=== PATIENT | male | born 1965 | race African-American/Black ===

== ENCOUNTER 2016-09-30 11:36 | Inpatient (IN) | payer MEDICAID ==
[~2016-09-30] VITALS: Ht 198.1 cm; Wt 70.8 kg
[~2016-09-30 11:36] MED LIST: ACET-2605 GT; ACET-868 GT; ALBU2.5V13 NEB; AMAN50SY GT; AMLO10TA2 GT; ASCO500S2 GT; BISA10SU61 RC; CHLO473M2 MM; CRAN3875 GT; ENOX30DI5 SQ; ERYT3.5O9 EACHEYE; FERR220S2 GT; HYDR-3326 GT; IPRA0.2S9 IH; LISI-607 GT; MAGN400O6 GT; METO50TA3 GT; MINE3.5O EACHEYE; MULT9LIQ GT; NA P133E RC; ONDA4TAB8 GT; POLY17PO4 GT; TERA2CAP4 GT; VANC1VIA IV; ZINC220T GT
--- NOTE | 2016-09-30 11:58 | NUR ---
domitila murphy from [facility] for g-tube replacement, patient seen by dr. orantes at bedside, placed on monitor, will continue to monitor closely, no caterina bleeding done.
--- NOTE | 2016-09-30 12:08 | NUR ---
CALLED (GI FAMILY NURSE), TRANSFERRED CALL TO
[2016-09-30] MEDS ORDERED: AMIN30LI4 GT (12:24)
[2016-09-30] MEDS ORDERED: CHLO15MO2 MM (12:24)
[2016-09-30] MEDS ORDERED: METO25TA20 GT (12:24)
[2016-09-30] MEDS ORDERED: LACT-96 GT (12:24)
[2016-09-30] MEDS ORDERED: ACID1TAB12 GT (12:24)
[2016-09-30] MEDS ORDERED: MULT-24 GT (12:24)
--- NOTE | 2016-09-30 13:24 | NUR ---
GAVE REPORT TO CHAPITO BARRERA/ KIET BARRERA ORIENTEE. DX GTUBE REPLACEMENT . ADMITTING MD DR SWARTZ. MEDSURG.
[2016-09-30] MEDS ORDERED: MAGNESIUM HYDROXIDE 30 ML UDC PO PRN ×2 (14:00→14:15)
[2016-09-30] MEDS ORDERED: ACETAMINOPHEN 325 MG TABLET PO PRN ×2 (14:00→14:15)
[2016-09-30] MEDS ORDERED: MAG HYDROX/AL HYDROX/SIMETH 30 ML UDC PO PRN ×2 (14:00→14:15)
[2016-09-30] MEDS ORDERED: Z GUARD REMEDY 2 OZ OINT TP PRN ×2 (14:00→14:15)
[2016-09-30] MEDS ORDERED: ALBUTEROL FS 2.5 MG/0.5 ML VIAL.NEB NEB PRN (14:00)
[2016-09-30] MEDS ORDERED: HYDROCODONE/APAP 5/325MG 1 EACH TABLET PO PRN ×2 (14:00→14:15)
[2016-09-30] MEDS ORDERED: ONDANSETRON HCL/PF 4 MG/2 ML VIAL IVP PRN ×2 (14:00→14:15)
[2016-09-30] MEDS ORDERED: ZOLPIDEM TARTRATE 5 MG TABLET PO PRN ×2 (14:00→14:15)
[2016-09-30] MEDS ORDERED: IPRATROPIUM NEB FS 0.5 MG/2.5 ML AMPUL.NEB IH PRN (14:00)
[2016-09-30 15:15] VITALS: BP 100/59
--- NOTE | 2016-09-30 15:57 | NUR ---
INITIAL HERITAGE CONSULTANT NOTE PT REPORT TO THE [place] ALERT AND ORIENTED TRACH DEPENDENT WITH A INTAKE DIAGNOSIS OF G- TUBE REPLACEMENT. PT HAS CURRENT G-TUBE NOT FULLY FUNCTIONAL, PT HAS HX OF RESP FAILURE, UTI, SKULL FX , ICP, INTRACRANIAL HEMORRHAGE. PT IS 51 YEAR OLD MALE COMPLETELY DEPENDENT SETTING FOR TRACH INCLUDED 28% COOL ARESOL AND 5 LITERS OF O2, PT HAS MULTIPLE WOUNDS PRESENT - BILATERAL HEELS AND FEET , SACRAL LEFT LEFT ULCER, MID BACK/SPINE RIGHT SHOULDER ULCER ALL WOUNDS ADDRESSED WOUND CONSULT SUBMITTED , BED PLACED IN LOWEST POSITION AND LOCKED PATIENT NO ISSUES PRESENT , NURSING STAFF CALLING FOR CONSENT AT THIS TIME FOR G-TUBE PLACEMENT. NURSING STAFF WILL CONTINUE TO FOLLOW
[2016-09-30 16:00] VITALS: BP 100/59
--- NOTE | 2016-09-30 16:40 | NUR ---
ROAD MACHINE RUNNER NOTE NURSING STAFF HAS ATTEMPTED MULTIPLE CONTACTS FOR THE PATIENTS FAMILY MEMBERS ON FILE NURSING STAFF UNABLE TO SPEAK WITH FAMILY MEMBERS VOICEMAIL LEFT FOR THE PATIENT FAMILY TO RETURN THE PHONE CALL NURSING STAFF WILL CONTINUE TO WAIT FOR RETURN CALL
--- NOTE | 2016-09-30 16:43 | NUR ---
MACHINE OPERATOR SLITTER TECHNICIAN NOTE SPOKE WITH DR. SWARTZ STATES HE WILL SIGN CONSENT ORDER FOR REPLACEMENT OF g-tube if nursing staff unable to reach patients family for consent to treat. spoke with Dr. Parada master scheduler- ordered consult and he will also sign when he is able to come in to evaluate the patient . n Nursing staff will continue to follow.
[2016-09-30 16:55] LABS: BASOPHILS % (AUTO) 0.3 % (0.0-2.0); EOSINOPHILS # (AUTO) 0.5 /CMM (0.0-0.7); EOSINOPHILS % (AUTO) 3.6 % (0.0-6.0); HEMATOCRIT 29 % (39-51); HEMOGLOBIN 9.1 g/dL (13.5-17.5); LYMPHOCYTES # (AUTO) 1.3 /CMM (0.8-4.8); MEAN CORPUSCULAR HEMOGLOBIN 25 PG (26.0-33.0); MEAN CORPUSCULAR HGB CONC 32 g/dl (31.0-36.0); MEAN CORPUSCULAR VOLUME 79 fL (80-96); MONOCYTES # (AUTO) 1.3 /CMM (0.1-1.30); MONOCYTES % (AUTO) 9.9 % (2.0-12.0); NEUTROPHILS # (AUTO) 10.3 /CMM (1.8-8.9); NEUTROPHILS % (AUTO) 76.2 % (43.0-81.0); PLATELET COUNT (AUTO) 265 /CMM (150-450); RDW COEFFICIENT OF VARIATION 17.8 (11.5-15.0); RED BLOOD CELL COUNT(AUTO) 3.63 MIL/uL (4.5-6.0); WHITE BLOOD COUNT (AUTO) 13.5 K/uL (4.3-11.0)
[2016-09-30] MEDS: ERYTHROMYCIN BASE OPHTH 3.5 GM TUBE EACHEYE SCH ×2 (17:00→20:39)
[2016-09-30] MEDS: FERROUS SULFATE (325 MG) 325 MG/TAB TABLET GT SCH (17:00)
[2016-09-30] MEDS: LACTOBACILLUS RHAMNOSUS GG 1 EACH CAP.SPRINK GT SCH (17:00)
[2016-09-30] MEDS: PROSOURCE / PROSTAT (PYXIS) 30 ML UDC GT SCH ×2 (17:00→20:14)
[2016-09-30] MEDS: HYDROCODONE/APAP 5/325MG 1 EACH TABLET GT SCH (17:00)
[2016-09-30 17:01] LABS: CALCIUM, SERUM 9.9 mg/dL (8.5-10.1); CREATININE 0.9 mg/dL (0.6-1.3); POTASSIUM 4.5 mmol/L (3.5-5.1)
[2016-09-30 17:15] LABS: EOSINOPHILS % (MANUAL) 4 % (0-4); LYMPHOCYTES % (MANUAL) 14 % (16-48); MONOCYTES % (MANUAL) 9 % (0-11.0); NEUTROPHILS % (MANUAL) 73 (42-76)
--- NOTE | 2016-09-30 17:21 | NUR ---
FUEL CELL REPAIRER OTE UNABLE TO ADMINISTER MEDS VIA G TUBE G TUBE NOT WORKING ,KEEP NPO AT THIS TIME, DR FALLON AWARE
[2016-09-30] MEDS: LANOLIN/MIN OIL/PETROLAT,WHT 3.5 GM TUBE EACHEYE SCH ×2 (17:45→20:39)
[2016-09-30 18:01] LABS: INR 1.1 (0.87-1.13); PROTHROMBIN TIME 11.8 SECS (9.5-12.7)
--- NOTE | 2016-09-30 18:15 | NUR ---
CLOSING INFORMATION TECHNOLOGY DIRECTOR NOTE PT ALERT AND ORIENTED TRACH DEPENDENT WITH A INTAKE DIAGNOSIS OF G- TUBE REPLACEMENT. PT HAS CURRENT G-TUBE NOT FULLY FUNCTIONAL, PT HAS HX OF RESP FAILURE, UTI, SKULL FX , ICP, INTRACRANIAL HEMORRHAGE. PT IS 51 YEAR OLD MALE COMPLETELY DEPENDENT SETTING FOR TRACH INCLUDED 28% COOL ARESOL AND 5 LITERS OF O2, PT HAS MULTIPLE WOUNDS PRESENT - BILATERAL HEELS AND FEET , SACRAL LEFT LEFT ULCER, MID BACK/SPINE RIGHT SHOULDER/ BACK OF THE HEAD PRESSURE ULCER ALL WOUNDS ADDRESSED WOUND CONSULT SUBMITTED , BED PLACED IN LOWEST POSITION AND LOCKED PATIENT NO ISSUES PRESENT , NURSING STAFF CALLING FOR CONSENT AT THIS TIME FOR G-TUBE PLACEMENT. NURSING STAFF WILL CONTINUE TO FOLLOW. AM RN WILL ENDORSE TO THE ENGINEERING EQUIPMENT OPERATOR.
--- NOTE | 2016-09-30 18:43 | NUR ---
BUFFING WHEEL FORMER AUTOMATIC NOTE NURSING STAFF CONTACTED THE PHARMACY IN [place] TO ERYTHROMYCIN EYE DROPS NEEDED FOR BOTH EYES , PHARMACY STATES THAT THEY WILL DELIVER DAY SHIFT STILL WAITING FOR MEDICATION WILL ENDORSE TO SOFTWARE FIRMWARE ENGINEER
--- NOTE | 2016-09-30 19:45 | NUR ---
ZINC ETCHER - INITIAL NOTES PATIENT IN BED, CURRENTLY AWAKE BUT NON-VERBAL. NO S/S OF SOB OR ANY DISCOMFORT NOTED. TELE READING OF SR IN THE 80'S. BREATHING EVEN AND UNLABORED. ON T-PIECE WITH COOL AEROSOL 5L @ 28%. NO SIGNIFICANT CHANGES NOTED AT THIS TIME. WILL CONTINUE TO MONITOR PATIENT.
[2016-09-30 20:00] VITALS: BP 115/64
[2016-09-30] MEDS: IPRATROPIUM NEB FS 0.5 MG/2.5 ML AMPUL.NEB IH SCH (20:08)
[2016-09-30] MEDS: ALBUTEROL FS 2.5 MG/0.5 ML VIAL.NEB NEB SCH (20:08)
[2016-09-30] MEDS: AMANTADINE SUSP 50 MG/5 ML UDC GT SCH (20:14)
[2016-09-30] MEDS: ENOXAPARIN SODIUM 30 MG/0.3 ML DISP.SYRIN SQ SCH (20:38)
[2016-09-30] MEDS: CHLORHEXIDINE GLUCONATE 15 ML UDC MM SCH (20:38)
[2016-09-30] MEDS: TERAZOSIN HCL 1 MG CAPSULE GT SCH (20:40)
[2016-10-01] VITALS: BP 103/63
[2016-10-01] MEDS: LANOLIN/MIN OIL/PETROLAT,WHT 3.5 GM TUBE EACHEYE SCH ×6 (00:39→21:25)
[2016-10-01] MEDS: ALBUTEROL FS 2.5 MG/0.5 ML VIAL.NEB NEB SCH ×4 (01:32→20:02)
[2016-10-01] MEDS: IPRATROPIUM NEB FS 0.5 MG/2.5 ML AMPUL.NEB IH SCH ×4 (01:33→20:02)
[2016-10-01 04:00] VITALS: BP 110/62
[2016-10-01] MEDS ORDERED: ACETAMINOPHEN 650 MG/SUPP.RECT RC ONE (04:23)
--- NOTE | 2016-10-01 04:28 | NUR ---
PATIENT NOTED TO HAVE A TEMP 101.1 F, PATIENT CURRENTLY NPO AND TUBE FEEDING NOT ABLE TO USE. INFORMED GLORIA GALLEGOS REGARDING PATIENT'S STATUS AND ORDERED BLOOD CULTURE X2, TYLENOL 650MG SUPP Q6H PRN FOR INCREASE TEMPERATURE AND URINE CULTURE. NOTED AND CARRIED OUT. Addendum: 10/01/16 at 0636 by AYLIN HORNER RN TEMP 101.4F
[2016-10-01] MEDS ORDERED: ACETAMINOPHEN 650 MG/SUPP.RECT RC PRN (04:30)
[2016-10-01 06:35] LABS: BASOPHILS % (AUTO) 0.3 % (0.0-2.0); EOSINOPHILS # (AUTO) 0.4 /CMM (0.0-0.7); HEMATOCRIT 27 % (39-51); HEMOGLOBIN 8.8 g/dL (13.5-17.5); LYMPHOCYTES # (AUTO) 1.3 /CMM (0.8-4.8); LYMPHOCYTES % (AUTO) 10.4 % (20.0-44.0); MEAN CORPUSCULAR HEMOGLOBIN 25 PG (26.0-33.0); MEAN CORPUSCULAR HGB CONC 32 g/dl (31.0-36.0); MEAN CORPUSCULAR VOLUME 78 fL (80-96); MONOCYTES # (AUTO) 1.1 /CMM (0.1-1.30); MONOCYTES % (AUTO) 8.9 % (2.0-12.0); NEUTROPHILS # (AUTO) 9.7 /CMM (1.8-8.9); NEUTROPHILS % (AUTO) 77.4 % (43.0-81.0); PLATELET COUNT (AUTO) 328 /CMM (150-450); RDW COEFFICIENT OF VARIATION 17.9 (11.5-15.0); RED BLOOD CELL COUNT(AUTO) 3.47 MIL/uL (4.5-6.0); WHITE BLOOD COUNT (AUTO) 12.6 K/uL (4.3-11.0)
--- NOTE | 2016-10-01 06:36 | NUR ---
RE-CHECKED PATIENT'S TEMP AND CURRENTLY AT 100.2F. NO DISTRESS NOTED. WILL CONTINUE TO MONITOR PATIENT.
--- NOTE | 2016-10-01 06:48 | NUR ---
END OF SHIFT REPORT PATIENT REMAINS STABLE. TEMP SPIKED TO 101.4 AT AROUND 0400. GOT AN ORDER FROM GLORIA GALLEGOS (HOSPITALIST) FOR BLOOD CULTURE X2, URINE CULTURE, AND TYLENOL SUPP 650MG PRN Q6H. TEMP DROPPED TO 100.3F. NO S/S OF SOB NOTED. TOLERATING COOL AEROSOL @ 5L FIO2 28%. BED IN LOW POSITION AND LOCKED. SIDERAILS X 2UP. WILL ENDORSE TO MORNING NURSE FOR CONTINUITY OF CARE.
[2016-10-01 06:49] LABS: CREATININE 0.9 mg/dL (0.6-1.3); POTASSIUM 3.9 mmol/L (3.5-5.1)
[2016-10-01 07:00] LABS: INR 1.11 (0.87-1.13); PROTHROMBIN TIME 11.9 SECS (9.5-12.7)
--- NOTE | 2016-10-01 07:30 | NUR ---
Received pt in bed.no c/o pain,no sob,no s/s of distress.on cool aerosol .pt on tele monitoring with S.R of 80.perez catheter cdi and patent.pt is on NPO status and waiting for G.TUBE replacement.safety measures in place .will continue to monitor for changes.
[2016-10-01] MEDS: CHLORHEXIDINE GLUCONATE 15 ML UDC MM SCH ×2 (09:00→21:23)
[2016-10-01] MEDS: ASCORBIC ACID SYRUP 500 MG/5 ML UDC GT SCH (09:00)
[2016-10-01] MEDS ORDERED: HYDROGEL DRESSING 90 GM TUBE TP PRN (09:00)
[2016-10-01] MEDS: LISINOPRIL (5MG) 5 MG TABLET GT SCH (09:00)
[2016-10-01] MEDS: FERROUS SULFATE (325 MG) 325 MG/TAB TABLET GT SCH ×3 (09:00→17:00)
[2016-10-01] MEDS: POLYETHYLENE GLYCOL 3350 17 GM POWD.PACK GT SCH (09:00)
[2016-10-01] MEDS ORDERED: Medication Not On Formulary EA (Cran/Vitc/Mannose/Inulin/Brom (Uti-Stat Liquid) 30 ML) GT SCH (09:00)
[2016-10-01] MEDS: ENOXAPARIN SODIUM 30 MG/0.3 ML DISP.SYRIN SQ SCH ×2 (09:00→21:30)
[2016-10-01] MEDS: HYDROCODONE/APAP 5/325MG 1 EACH TABLET GT SCH ×2 (09:00→17:00)
[2016-10-01] MEDS: PROSOURCE / PROSTAT (PYXIS) 30 ML UDC GT SCH ×4 (09:00→22:06)
[2016-10-01] MEDS: MULTIVITAMINS,THERAPEUTIC 1 UDTAB TABLET GT SCH (09:00)
[2016-10-01] MEDS: METOPROLOL TARTRATE 25 MG TABLET GT SCH (09:00)
[2016-10-01] MEDS: AMLODIPINE BESYLATE 10 MG TABLET GT SCH (09:00)
[2016-10-01] MEDS: HYDROGEL DRESSING 90 GM TUBE TP SCH (09:00)
[2016-10-01] MEDS: LACTOBACILLUS RHAMNOSUS GG 1 EACH CAP.SPRINK GT SCH ×2 (09:00→17:00)
[2016-10-01] MEDS: DAKINS QUARTER STRENGTH (0.125%) 480 ML BOTTLE TOP SCH (09:00)
[2016-10-01] MEDS: AMANTADINE SUSP 50 MG/5 ML UDC GT SCH ×2 (09:00→21:00)
[2016-10-01] MEDS: ERYTHROMYCIN BASE OPHTH 3.5 GM TUBE EACHEYE SCH ×4 (09:00→21:24)
[2016-10-01 12:00] VITALS: BP 110/59
[2016-10-01 15:48] LABS: CALCIUM, SERUM 9.8 mg/dL (8.5-10.1); CREATININE 0.9 mg/dL (0.6-1.3); POTASSIUM 3.9 mmol/L (3.5-5.1)
[2016-10-01 16:00] VITALS: BP 109/64
--- NOTE | 2016-10-01 19:30 | NUR ---
CORE MAKER HELPER NOTE RECEIVED PATIENT FROM DAY SHIFT, PATIENT IS ALERT AND NON-VERBAL, WITH TRACH DEPENDENT 5L OF AEROSOL. G TUBE PRESENT MALFUNCTIONING, UNABLE TO USE AT THIS TIME, STILL PENDING FOR G TUBE PLACEMENT PER REPORT. IV ON RIGHT HAND IS PATENT AND INTACT, HL ONLY. TELE MONITOR SR 98. SRX2, BED IN LOW POSITION, CALL LIGHT WITHIN REACH, WILL CONTINUE TO MONITOR PATIENT.
[2016-10-01 20:00] VITALS: BP 109/65
[2016-10-01] MEDS: TERAZOSIN HCL 1 MG CAPSULE GT SCH (22:00)
[2016-10-02] VITALS: BP 108/65
[2016-10-02] MEDS: LANOLIN/MIN OIL/PETROLAT,WHT 3.5 GM TUBE EACHEYE SCH ×6 (00:59→21:42)
[2016-10-02] MEDS: ALBUTEROL FS 2.5 MG/0.5 ML VIAL.NEB NEB SCH ×4 (01:27→20:08)
[2016-10-02] MEDS: IPRATROPIUM NEB FS 0.5 MG/2.5 ML AMPUL.NEB IH SCH ×4 (01:27→20:08)
[2016-10-02 04:00] VITALS: BP 107/62
[2016-10-02 06:31] LABS: BASOPHILS % (AUTO) 0.3 % (0.0-2.0); EOSINOPHILS # (AUTO) 0.4 /CMM (0.0-0.7); EOSINOPHILS % (AUTO) 2.8 % (0.0-6.0); HEMATOCRIT 31 % (39-51); HEMOGLOBIN 9.9 g/dL (13.5-17.5); LYMPHOCYTES # (AUTO) 1.3 /CMM (0.8-4.8); MEAN CORPUSCULAR HEMOGLOBIN 25 PG (26.0-33.0); MEAN CORPUSCULAR HGB CONC 32 g/dl (31.0-36.0); MEAN CORPUSCULAR VOLUME 78 fL (80-96); MONOCYTES # (AUTO) 1.2 /CMM (0.1-1.30); MONOCYTES % (AUTO) 9.1 % (2.0-12.0); NEUTROPHILS # (AUTO) 10.3 /CMM (1.8-8.9); NEUTROPHILS % (AUTO) 77.8 % (43.0-81.0); PLATELET COUNT (AUTO) 313 /CMM (150-450); RED BLOOD CELL COUNT(AUTO) 3.93 MIL/uL (4.5-6.0); WHITE BLOOD COUNT (AUTO) 13.3 K/uL (4.3-11.0)
--- NOTE | 2016-10-02 06:34 | NUR ---
SALESPERSON FLOWERS NOTE PATIENT IS RESTING IN BED COMFORTABLY, NO ACUTE DISTRESS NOTED DURING THE SOFTWARE INTERN. ALL DUE MEDS GIVEN, MORNING CARE RENDERED, DRESSING CHANGES PERFORMED PER ORDER. MARTINEZ EMPTIED 950ML. NO S/S OF RESPIRATORY DISTRESS AND NO FACIAL GRIMACE NOTED. TELE SR 100. WILL ENDORSE TO DAY SHIFT FOR ROMI.
[2016-10-02 06:58] LABS: CALCIUM, SERUM 10.1 mg/dL (8.5-10.1); CREATININE 0.8 mg/dL (0.6-1.3); POTASSIUM 4.1 mmol/L (3.5-5.1)
--- NOTE | 2016-10-02 07:28 | NUR ---
SENIOR CONSUMER INSIGHTS CONSULTANT NOTE REPORT GIVEN TO GAETANOG RN FOR ROMI.
[2016-10-02 08:00] VITALS: BP 117/79
[2016-10-02] MEDS: HYDROCODONE/APAP 5/325MG 1 EACH TABLET GT SCH ×2 (09:00→17:00)
[2016-10-02] MEDS: FERROUS SULFATE (325 MG) 325 MG/TAB TABLET GT SCH ×3 (09:00→17:00)
[2016-10-02] MEDS: ERYTHROMYCIN BASE OPHTH 3.5 GM TUBE EACHEYE SCH ×4 (09:00→21:43)
[2016-10-02] MEDS: AMANTADINE SUSP 50 MG/5 ML UDC GT SCH ×2 (09:00→21:00)
[2016-10-02] MEDS: LACTOBACILLUS RHAMNOSUS GG 1 EACH CAP.SPRINK GT SCH ×2 (09:00→17:00)
[2016-10-02] MEDS: MULTIVITAMINS,THERAPEUTIC 1 UDTAB TABLET GT SCH (09:00)
[2016-10-02] MEDS: HYDROGEL DRESSING 90 GM TUBE TP SCH (09:00)
[2016-10-02] MEDS: POLYETHYLENE GLYCOL 3350 17 GM POWD.PACK GT SCH (09:00)
[2016-10-02] MEDS: ASCORBIC ACID SYRUP 500 MG/5 ML UDC GT SCH (09:00)
[2016-10-02] MEDS: METOPROLOL TARTRATE 25 MG TABLET GT SCH (09:00)
[2016-10-02] MEDS: DAKINS QUARTER STRENGTH (0.125%) 480 ML BOTTLE TOP SCH (09:00)
[2016-10-02] MEDS: ENOXAPARIN SODIUM 30 MG/0.3 ML DISP.SYRIN SQ SCH ×2 (09:00→21:33)
[2016-10-02] MEDS: PROSOURCE / PROSTAT (PYXIS) 30 ML UDC GT SCH ×4 (09:00→21:00)
[2016-10-02] MEDS: CHLORHEXIDINE GLUCONATE 15 ML UDC MM SCH ×2 (09:00→21:32)
[2016-10-02] MEDS: LISINOPRIL (5MG) 5 MG TABLET GT SCH (09:00)
[2016-10-02] MEDS: AMLODIPINE BESYLATE 10 MG TABLET GT SCH (09:00)
--- NOTE | 2016-10-02 11:24 | NUR ---
REPORTED ABNORMAL LABS TO FOR SODIUM OF 150 .HE STATED TO FOLLOW UP WITH NEPHROLOGY TEAM.DR. ESCAMILLA FROM [facility] NEPHROLOGY NOTIFIED.NO NEW ORDERS RECEIVED.
[2016-10-02] MEDS ORDERED: IV 1/2NS 1000 ML 1,000 ML IV ONE (11:48)
[2016-10-02] MEDS ORDERED: IV SET PRIMARY PUMP SET 1 EA INFUS.SET MC ONE (11:49)
[2016-10-02 12:00] VITALS: BP 119/71
[2016-10-02] MEDS ORDERED: IV NS 0.9% 1,000 ML BAG IV PRN (12:00)
[2016-10-02 16:00] VITALS: BP 116/70
[2016-10-02] MEDS: IV NS 0.9% 1,000 ML IV PRN (16:18)
--- NOTE | 2016-10-02 19:30 | NUR ---
RN NOTES RECEIVED PT AWAKE NON-VERBAL, ST ON TELE MONITOR HR 106, ON NPO STATUS, NS RUNNING @ 100ML/HR, SIDERAILS UPX2 CONTINUE TO MONITOR
[2016-10-02 20:00] VITALS: BP 114/67
[2016-10-02] MEDS: TERAZOSIN HCL 1 MG CAPSULE GT SCH (21:45)
[2016-10-03] VITALS: BP 115/70
[2016-10-03] MEDS: IV NS 0.9% 1,000 ML IV PRN (00:46)
[2016-10-03] MEDS: LANOLIN/MIN OIL/PETROLAT,WHT 3.5 GM TUBE EACHEYE SCH ×6 (00:47→20:38)
[2016-10-03] MEDS: ALBUTEROL FS 2.5 MG/0.5 ML VIAL.NEB NEB SCH ×4 (02:18→20:12)
[2016-10-03] MEDS: IPRATROPIUM NEB FS 0.5 MG/2.5 ML AMPUL.NEB IH SCH ×4 (02:18→20:12)
[2016-10-03 04:00] VITALS: BP 112/67
--- NOTE | 2016-10-03 05:00 | NUR ---
RN NOTES F/C WAS LEAKING , DEFLATE AND FIX THE MARTINEZ, CONTINUE TO MONITOR
--- NOTE | 2016-10-03 06:38 | NUR ---
RN NOTES SLEEPING BUT AROUSABLE, MORNING CARE RENDERED, PT NEEDS ATTENDED. ENDORSED TO DAYSHIFT NURSE FOR CONTINUITY OF CARE
[2016-10-03 06:51] LABS: BASOPHILS % (AUTO) 0.1 % (0.0-2.0); EOSINOPHILS # (AUTO) 0.3 /CMM (0.0-0.7); EOSINOPHILS % (AUTO) 2.7 % (0.0-6.0); HEMATOCRIT 31 % (39-51); HEMOGLOBIN 9.8 g/dL (13.5-17.5); LYMPHOCYTES # (AUTO) 1.5 /CMM (0.8-4.8); MEAN CORPUSCULAR HEMOGLOBIN 25 PG (26.0-33.0); MEAN CORPUSCULAR HGB CONC 32 g/dl (31.0-36.0); MEAN CORPUSCULAR VOLUME 79 fL (80-96); MONOCYTES # (AUTO) 1.2 /CMM (0.1-1.30); MONOCYTES % (AUTO) 9.2 % (2.0-12.0); NEUTROPHILS # (AUTO) 9.6 /CMM (1.8-8.9); PLATELET COUNT (AUTO) 336 /CMM (150-450); RDW COEFFICIENT OF VARIATION 18.5 (11.5-15.0); RED BLOOD CELL COUNT(AUTO) 3.89 MIL/uL (4.5-6.0); WHITE BLOOD COUNT (AUTO) 12.7 K/uL (4.3-11.0)
--- NOTE | 2016-10-03 07:00 | NUR ---
TRAFFIC CONTROL TECHNICIAN INITIAL NOTE REPORT RECEIVED AT THE BEDSIDE. PATIENT IS RESTING COMFORTABLY IN BED. NO SOB OR DISTRESS NOTED AT THIS TIME. PATIENT DOES NOT APPEAR TO BE IN PAIN, NO FACIAL GRIMACE NOTED. HEART RATE ST AT 101. BED IN A LOW POSITION, CALL LIGHT WITHIN PATIENT REACH. WILL CONTINUE TO MONITOR.
[2016-10-03 07:36] LABS: CALCIUM, SERUM 9.8 mg/dL (8.5-10.1); CREATININE 0.8 mg/dL (0.6-1.3); POTASSIUM 4.8 mmol/L (3.5-5.1)
[2016-10-03 08:00] VITALS: BP 107/63
[2016-10-03] MEDS: CHLORHEXIDINE GLUCONATE 15 ML UDC MM SCH ×2 (08:25→20:35)
[2016-10-03] MEDS: FERROUS SULFATE (325 MG) 325 MG/TAB TABLET GT SCH ×3 (08:26→17:00)
[2016-10-03] MEDS: METOPROLOL TARTRATE 25 MG TABLET GT SCH (08:26)
[2016-10-03] MEDS: LACTOBACILLUS RHAMNOSUS GG 1 EACH CAP.SPRINK GT SCH ×2 (08:26→17:00)
[2016-10-03] MEDS: HYDROCODONE/APAP 5/325MG 1 EACH TABLET GT SCH ×2 (08:26→17:00)
[2016-10-03] MEDS: POLYETHYLENE GLYCOL 3350 17 GM POWD.PACK GT SCH (08:26)
[2016-10-03] MEDS: ASCORBIC ACID SYRUP 500 MG/5 ML UDC GT SCH (08:26)
[2016-10-03] MEDS: AMLODIPINE BESYLATE 10 MG TABLET GT SCH (08:27)
[2016-10-03] MEDS: AMANTADINE SUSP 50 MG/5 ML UDC GT SCH ×2 (08:27→20:39)
[2016-10-03] MEDS: MULTIVITAMINS,THERAPEUTIC 1 UDTAB TABLET GT SCH (08:27)
[2016-10-03] MEDS: PROSOURCE / PROSTAT (PYXIS) 30 ML UDC GT SCH ×4 (08:27→20:38)
[2016-10-03] MEDS: LISINOPRIL (5MG) 5 MG TABLET GT SCH (08:27)
[2016-10-03] MEDS: DAKINS QUARTER STRENGTH (0.125%) 480 ML BOTTLE TOP SCH (08:28)
[2016-10-03] MEDS: HYDROGEL DRESSING 90 GM TUBE TP SCH (08:28)
[2016-10-03] MEDS: ERYTHROMYCIN BASE OPHTH 3.5 GM TUBE EACHEYE SCH ×4 (08:29→20:38)
[2016-10-03] MEDS: ENOXAPARIN SODIUM 30 MG/0.3 ML DISP.SYRIN SQ SCH ×2 (08:30→20:36)
--- NOTE | 2016-10-03 10:00 | NUR ---
MS RN NOTES MARTINEZ CATHETER IS LEAKING. WILL CONTACT DR AND ASK IF THE MARTINEZ CAN BE IRRIGATED OR REPLACED.
[2016-10-03 12:00] VITALS: BP 114/72
[2016-10-03] MEDS: CEFTRIAXONE 1 G in IV D5W 50 ML IV SCH (12:52)
[2016-10-03] MEDS: IV D5 / 0.2% NACL 1,000 ML IV PRN ×2 (12:52→23:36)
[2016-10-03] MEDS ORDERED: SECONDARY IV SET 1 EA INFUS.SET MC ONE (13:08)
--- NOTE | 2016-10-03 14:15 | NUR ---
RN NOTES MARTINEZ IS STILL LEAKING. REMOVED OLD MARTINEZ AND PLACED A NEW ONE PER DR SWARTZ'S ORDER. NEW MARTINEZ DRAINING INTO DRAINAGE BAG.
[2016-10-03 16:00] VITALS: BP 104/71
--- NOTE | 2016-10-03 18:50 | NUR ---
MANAGER UNIVERSAL CLOSING NOTE NO SIGNIFICANT CHANGES IN PATIENT CONDITION THROUGHOUT THE SHIFT. NO SOB OR DISTRESS NOTED AT THIS TIME. PATIENT DOES NOT APPEAR TO BE IN PAIN, NO FACIAL GRIMACE NOTED. HEART RATE IS SR AT 98. BED IN A LOW POSITION, CALL LIGHT WITHIN PATIENT REACH, WILL ENDORSE FOR ROMI.
--- NOTE | 2016-10-03 19:15 | NUR ---
CULLET CRUSHER INITIAL NOTES PT IS IN BED, VEGETATIVE STATE, TRACH INTACT, ON COOL AEROSOL, TOLERATING IT WELL, HOB ELEVATED. NO RESPIRATORY DISTRESS NOTED. ON TELE MONITOR SINUS. MARTINEZ CATH DRAINING WITH YELLOW URINE, ON ISOLATION FOR URINE AND MRSA WOUND. MAXIMUM ASSISTANCE NEED FOR TURNING AND REPOSITIONING, WILL BE DONE Q2HAND PRN. IV SITE R HAND - FLUSHED AND PATENT ON D5 1/4 NS @100ML/HR. NPO. SIDE RAILS UP AND BED LOCKED AND IN LOWEST POSITION. WILL CONTINUE MONITOR CLOSELY
[2016-10-03 20:00] VITALS: BP 103/59
[2016-10-03] MEDS: TERAZOSIN HCL 1 MG CAPSULE GT SCH (22:00)
[2016-10-03] MEDS ORDERED: IV D5 / 0.2% NACL 1,000 ML IV ONE (23:29)
[2016-10-04] VITALS: BP 113/71
[2016-10-04] MEDS: LANOLIN/MIN OIL/PETROLAT,WHT 3.5 GM TUBE EACHEYE SCH ×6 (00:20→21:26)
[2016-10-04] MEDS: ALBUTEROL FS 2.5 MG/0.5 ML VIAL.NEB NEB SCH ×4 (02:10→20:14)
[2016-10-04] MEDS: IPRATROPIUM NEB FS 0.5 MG/2.5 ML AMPUL.NEB IH SCH ×4 (02:10→20:14)
[2016-10-04 04:00] VITALS: BP 118/70
--- NOTE | 2016-10-04 06:40 | NUR ---
GASTROENTEROLOGY NURSE PRACTITIONER CLOSING NOTES NO SIGNIFICANT CHANGE OVERNIGHT. ON COOL AEROSOL FI02 28%, 5LPM, TOLERATING IT WELL. TRACH CARE GIVEN, SINUS RHYTHM 82 ON TELE MONITOR. NO ACUTE DISTRESS NOTED. STILL NPO - ON IVF D51/4 NS@100ML/HR, NO S/SX OF INFECTION/INFILTRATION NOTED. MARTINEZ CATH PATENT AND DRAINING, STILL ON CONTACT ISOLATION. WOUND TREATMENT DONE, KEPT PT CLEAN AND DRY, NO NEW SKIN BREAKDOWN NOTED. HOB ELEVATED, SIDE RAILS UP, BED LOCKED AND IN LOWEST POSITION, WILL ENDORSE TO AM NURSE FOR CONTINUATION OF CARE.
[2016-10-04 06:52] LABS: BASOPHILS % (AUTO) 0.4 % (0.0-2.0); EOSINOPHILS # (AUTO) 0.6 /CMM (0.0-0.7); EOSINOPHILS % (AUTO) 5.1 % (0.0-6.0); HEMATOCRIT 31 % (39-51); HEMOGLOBIN 9.9 g/dL (13.5-17.5); LYMPHOCYTES # (AUTO) 1.3 /CMM (0.8-4.8); LYMPHOCYTES % (AUTO) 10.9 % (20.0-44.0); MEAN CORPUSCULAR HEMOGLOBIN 25 PG (26.0-33.0); MEAN CORPUSCULAR HGB CONC 32 g/dl (31.0-36.0); MEAN CORPUSCULAR VOLUME 79 fL (80-96); MONOCYTES # (AUTO) 0.9 /CMM (0.1-1.30); MONOCYTES % (AUTO) 7.6 % (2.0-12.0); NEUTROPHILS # (AUTO) 8.7 /CMM (1.8-8.9); PLATELET COUNT (AUTO) 308 /CMM (150-450); RDW COEFFICIENT OF VARIATION 18.6 (11.5-15.0); RED BLOOD CELL COUNT(AUTO) 3.94 MIL/uL (4.5-6.0); WHITE BLOOD COUNT (AUTO) 11.5 K/uL (4.3-11.0)
--- NOTE | 2016-10-04 07:00 | NUR ---
RN NOTES RECEIVED PT ON BED , NON VERBAL , TRACH TO COOL AEROSOL PT IS IN BED, O2 SAT WNL , NO RESPIRATORY DISTRESS NOTED. ON TELE SINUS. MARTINEZ CATH DRAINING TO GRAVITY WITH YELLOW URINE, ON ISOLATION FOR URINE AND MRSA WOUND. HOB ELEVATED, R HAND IV SITE WITH D5 1/4 NS @100ML/HR.SIDE RAILS UPx3, BED LOCKED AND IN LOWEST POSITION. NPO AT THIS TIME , WILL CONTINUE MONITOR PT CLOSELY AND NOTIFY MD FOR ANY SIGNIFICANT CHANGES
[2016-10-04 07:14] LABS: CALCIUM, SERUM 9.7 mg/dL (8.5-10.1); CREATININE 0.9 mg/dL (0.6-1.3); POTASSIUM 3.6 mmol/L (3.5-5.1)
[2016-10-04 08:00] VITALS: BP 111/66
[2016-10-04] MEDS: LACTOBACILLUS RHAMNOSUS GG 1 EACH CAP.SPRINK GT SCH ×2 (08:15→16:28)
[2016-10-04] MEDS: FERROUS SULFATE (325 MG) 325 MG/TAB TABLET GT SCH ×3 (08:15→16:28)
[2016-10-04] MEDS: ASCORBIC ACID SYRUP 500 MG/5 ML UDC GT SCH (08:15)
[2016-10-04] MEDS: METOPROLOL TARTRATE 25 MG TABLET GT SCH (08:15)
[2016-10-04] MEDS: POLYETHYLENE GLYCOL 3350 17 GM POWD.PACK GT SCH (08:16)
[2016-10-04] MEDS: HYDROCODONE/APAP 5/325MG 1 EACH TABLET GT SCH ×2 (08:16→16:29)
[2016-10-04] MEDS: AMLODIPINE BESYLATE 10 MG TABLET GT SCH (08:16)
[2016-10-04] MEDS: AMANTADINE SUSP 50 MG/5 ML UDC GT SCH ×2 (08:17→21:00)
[2016-10-04] MEDS: LISINOPRIL (5MG) 5 MG TABLET GT SCH (08:17)
[2016-10-04] MEDS: MULTIVITAMINS,THERAPEUTIC 1 UDTAB TABLET GT SCH (08:17)
[2016-10-04] MEDS: PROSOURCE / PROSTAT (PYXIS) 30 ML UDC GT SCH ×4 (08:17→21:00)
[2016-10-04] MEDS: CHLORHEXIDINE GLUCONATE 15 ML UDC MM SCH ×2 (08:22→21:24)
[2016-10-04] MEDS: ERYTHROMYCIN BASE OPHTH 3.5 GM TUBE EACHEYE SCH ×4 (08:22→21:26)
[2016-10-04] MEDS: ENOXAPARIN SODIUM 30 MG/0.3 ML DISP.SYRIN SQ SCH ×2 (08:24→21:00)
[2016-10-04] MEDS: HYDROGEL DRESSING 90 GM TUBE TP SCH (08:25)
[2016-10-04] MEDS: DAKINS QUARTER STRENGTH (0.125%) 480 ML BOTTLE TOP SCH (08:25)
[2016-10-04] MEDS: IV D5 / 0.2% NACL 1,000 ML IV PRN (10:04)
[2016-10-04] MEDS: IV D5W 1,000 ML IV PRN (11:59)
[2016-10-04 12:00] VITALS: BP 127/72
[2016-10-04] MEDS: CEFTRIAXONE 1 G in IV D5W 50 ML IV SCH (12:00)
--- NOTE | 2016-10-04 12:00 | NUR ---
RN NOTES PT STABLE, TRACH SUCTIONING DONE , IVF D5W AT 100CC/HR RUNNING VIA R HAND IV SITE , CONTINUE TO MONITOR .
[2016-10-04 16:00] VITALS: BP_SYST 131; BP_SYST 97; BP_SYST 99; BP_DIAS 50; BP_DIAS 64; BP_DIAS 65
--- NOTE | 2016-10-04 18:25 | NUR ---
RN NOTES PT STABLE, MARTINEZ DRAINING TO GRAVITY WELL, PT MEDICATED PER MD ORDER., SR UPX3, CALL LIGHT WITHIN EASY REACH, NO SIGNIFICANT CHANGES NOTED ON THIS SHIFT .
--- NOTE | 2016-10-04 19:15 | NUR ---
RN OPEN NOTES RECEIVED PATIENT IN BED. NON VERBAL. NO SIGNS OF DISTRESS OR DISCOMFORT. BREATHING EVEN AND UNLABORED. HAS TRACH TO COOL AEROSOL AND SATING WNL. ON TELE MONITORING WITH SR NOTED. F/C PATENT AND INTACT DRAINING TO GRAVITY WITH DARK YELLOW FLUID NOTED. IV ACCESS IN R HAND WITH D5W INFUSING, NO SIGNS OF REDNESS OR INFILTRATION. BED IN LOW LOCKED POSITION WITH SIDE RAILS X3. CALL LIGHT WITHIN REACH. WILL CONTINUE TO MONITOR.
[2016-10-04 20:00] VITALS: BP_SYST 104; BP_DIAS 60; BP_DIAS 69
[2016-10-04] MEDS: TERAZOSIN HCL 1 MG CAPSULE GT SCH (22:00)
[2016-10-05] VITALS (10 sets, daily range): BP systolic 97–113; BP diastolic 56–72
[2016-10-05] MEDS: LANOLIN/MIN OIL/PETROLAT,WHT 3.5 GM TUBE EACHEYE SCH ×6 (01:59→21:35)
[2016-10-05] MEDS: ALBUTEROL FS 2.5 MG/0.5 ML VIAL.NEB NEB SCH ×4 (02:03→19:55)
[2016-10-05] MEDS: IPRATROPIUM NEB FS 0.5 MG/2.5 ML AMPUL.NEB IH SCH ×4 (02:03→19:55)
[2016-10-05] MEDS: IV D5W 1,000 ML IV PRN ×2 (02:56→16:58)
[2016-10-05 06:33] LABS: BASOPHILS % (AUTO) 0.2 % (0.0-2.0); EOSINOPHILS # (AUTO) 0.5 /CMM (0.0-0.7); EOSINOPHILS % (AUTO) 5.4 % (0.0-6.0); HEMATOCRIT 29 % (39-51); HEMOGLOBIN 9.4 g/dL (13.5-17.5); LYMPHOCYTES # (AUTO) 1.1 /CMM (0.8-4.8); LYMPHOCYTES % (AUTO) 10.7 % (20.0-44.0); MEAN CORPUSCULAR HEMOGLOBIN 25 PG (26.0-33.0); MEAN CORPUSCULAR HGB CONC 32 g/dl (31.0-36.0); MEAN CORPUSCULAR VOLUME 79 fL (80-96); MONOCYTES # (AUTO) 0.6 /CMM (0.1-1.30); MONOCYTES % (AUTO) 5.7 % (2.0-12.0); NEUTROPHILS # (AUTO) 7.8 /CMM (1.8-8.9); PLATELET COUNT (AUTO) 339 /CMM (150-450); RDW COEFFICIENT OF VARIATION 18.6 (11.5-15.0); RED BLOOD CELL COUNT(AUTO) 3.71 MIL/uL (4.5-6.0)
[2016-10-05 06:40] LABS: CALCIUM, SERUM 9.1 mg/dL (8.5-10.1); CREATININE 0.7 mg/dL (0.6-1.3); POTASSIUM 3.1 mmol/L (3.5-5.1)
--- NOTE | 2016-10-05 06:45 | NUR ---
RN CLOSING NOTES PATIENT IN BED. NON VERBAL. NO SIGNS OF DISTRESS OR DISCOMFORT. BREATHING EVEN AND UNLABORED. HAS TRACH TO COOL AEROSOL AND SATING WNL. ON TELE MONITORING WITH SR NOTED. F/C PATENT AND INTACT DRAINING TO GRAVITY WITH DARK YELLOW FLUID NOTED. IV ACCESS IN [place] WITH D5W INFUSING, NO SIGNS OF REDNESS OR INFILTRATION. ALL NEEDS MET. NO SIGNIFICANT CHANGES THROUGH THE NIGHT. PATIENT KEPT CLEAN DRY AND COMFORTABLE. ALL DRESSING CHANGED, C/D/I. BED IN LOW LOCKED POSITION WITH SIDE RAILS X3. CALL LIGHT WITHIN REACH. WILL ENDORSE TO AM SHIFT FOR ROMI.
--- NOTE | 2016-10-05 07:04 | NUR ---
RN NOTES PATIENT TRANSFERRED TO OR WITH OR NURSE VIA GURNEY IN STABLE CONDITION.
--- NOTE | 2016-10-05 07:15 | NUR ---
RN NOTES: PT RECEIVED IN STABLE CONDITION IN VEGETATIVE STATE. ON TRAC COOL AEROSOL, BREATHING PATTERN REGULAR & UNLABORED. ON TELE MONITOR SR. F/C INTACT, DRAINING WELL WITH GRAVITY. NPO, SURGERY TODAY. IV SITE INTACT, RUNNING WITH IV FLUIDS ORDERED. WILL CONTINUE TO MONITOR. SAFETY MEASURES OBSERVED.
--- NOTE | 2016-10-05 07:18 | NUR ---
RN NOTES: PT LEFT TO OR WITH OR NURSE, TRANSFERRED VIA BED.
--- NOTE | 2016-10-05 07:42 | NUR ---
WOUND CARE CONSULT (LATE ENTRY): PT SEEN FOR FULL SKIN ASSESSMENT ON 10/01/16 AND SURGICAL CONSULT WAS CALLED BY MD TO DR KRYSTA CRAIG. PT NOTED TO HAVE MULTIPLE WOUNDS, PRESENT ON ADMISSION. ALL SKIN PROTECTION AND WOUND RECOMMENDATIONS DISCUSSED WITH NURSING STAFF. PT TO BE TURNED AND REPOSITIONED EVERY 2 HRS PT CONDITION PERMITS, HEELS FLOATED. WILL SEE PRN. MD IN AGREEMENT WITH PLAN OF CARE.
[2016-10-05] MEDS: FIBERSOURCE HN 1,000 ML BOTTLE GT PRN (08:45)
[2016-10-05] MEDS: AMANTADINE SUSP 50 MG/5 ML UDC GT SCH ×2 (08:46→21:33)
[2016-10-05] MEDS: POLYETHYLENE GLYCOL 3350 17 GM POWD.PACK GT SCH (08:46)
[2016-10-05] MEDS: FERROUS SULFATE (325 MG) 325 MG/TAB TABLET GT SCH ×3 (08:46→16:57)
[2016-10-05] MEDS: MULTIVITAMINS,THERAPEUTIC 1 UDTAB TABLET GT SCH (08:46)
[2016-10-05] MEDS: PROSOURCE / PROSTAT (PYXIS) 30 ML UDC GT SCH ×4 (08:46→21:33)
[2016-10-05] MEDS: ASCORBIC ACID SYRUP 500 MG/5 ML UDC GT SCH (08:46)
[2016-10-05] MEDS: LACTOBACILLUS RHAMNOSUS GG 1 EACH CAP.SPRINK GT SCH ×2 (08:46→16:57)
[2016-10-05] MEDS: CHLORHEXIDINE GLUCONATE 15 ML UDC MM SCH ×2 (08:46→21:34)
[2016-10-05] MEDS: AMLODIPINE BESYLATE 10 MG TABLET GT SCH (08:47)
[2016-10-05] MEDS: METOPROLOL TARTRATE 25 MG TABLET GT SCH (08:47)
[2016-10-05] MEDS: HYDROCODONE/APAP 5/325MG 1 EACH TABLET GT SCH ×2 (08:48→16:57)
[2016-10-05] MEDS: LISINOPRIL (5MG) 5 MG TABLET GT SCH (08:48)
[2016-10-05] MEDS: ENOXAPARIN SODIUM 30 MG/0.3 ML DISP.SYRIN SQ SCH ×2 (08:50→21:42)
[2016-10-05] MEDS: ERYTHROMYCIN BASE OPHTH 3.5 GM TUBE EACHEYE SCH ×4 (08:56→21:34)
[2016-10-05] MEDS: HYDROGEL DRESSING 90 GM TUBE TP SCH (08:57)
[2016-10-05] MEDS: DAKINS QUARTER STRENGTH (0.125%) 480 ML BOTTLE TOP SCH (08:57)
[2016-10-05] MEDS ORDERED: MAG HYDROX/AL HYDROX/SIMETH 30 ML UDC GT PRN (09:31)
[2016-10-05] MEDS ORDERED: POTASSIUM CHLORIDE 20 MEQ POWDER PACKET NG SCH (10:00)
[2016-10-05] MEDS ORDERED: POTASSIUM CHLORIDE 20 MEQ POWDER PACKET GT SCH (10:00)
[2016-10-05] MEDS: CEFTRIAXONE 1 G in IV D5W 50 ML IV SCH (12:13)
[2016-10-05] MEDS ORDERED: SECONDARY IV SET 1 EA INFUS.SET MC ONE (13:47)
[2016-10-05] MEDS: CEFEPIME 1 GM in IV D5W 50 ML IV SCH ×2 (14:01→21:32)
[2016-10-05] MEDS ORDERED: ANESTHESIA TRAY IN PYXIS 1 EA TRAY MC ONE (14:15)
--- NOTE | 2016-10-05 19:20 | NUR ---
RN NOTES: NO CHANGE OF CONDITION NOTED DURING SHIFT. REPORT GIVEN TO NIGHT NURSE AT BEDSIDE FOR CONTINUITY OF CARE.
--- NOTE | 2016-10-05 19:30 | NUR ---
MS RN NOTE: PATIENT RESTING IN BED, NO ACUTE DISTRESS NOTED. BREATHING EVEN AND UNLABORED, NO SOB NOTED. TRACH IN PLACE WITH COOL AEROSOL. G-TUBE IN PLACE WITH 10ML OF RESIDUAL, INFUSING FIBERSOURCE AT 85ML/HL. HOB ELEVATED. IV TO RIGHT UPPER ARM IN PLACE, INFUSING D5W AT 50 ML/HR. ISOLATION PRECAUTIONS OBSERVED. BED LOCKED AND IN LOWEST POSITION, CALL LIGHT IN REACH. WILL CONTINUE TO MONITOR.
[2016-10-05] MEDS: TERAZOSIN HCL 1 MG CAPSULE GT SCH (21:34)
--- NOTE | 2016-10-05 22:00 | NUR ---
MS BARRERA NOTE: PATIENT REFUSES TO BE CHANGED OR CLEANED AT THIS TIME. PATIENT SCREAMING AND REFUSES TO BE TOUCHED. WILL TRY AGAIN LATER. WILL CONTINUE TO MONITOR. Addendum: 10/06/16 at 0111 by ANGEL SALMON RN ERROR IN CHARTING, WRONG PATIENT
[2016-10-06] MEDS: LANOLIN/MIN OIL/PETROLAT,WHT 3.5 GM TUBE EACHEYE SCH ×6 (00:02→21:52)
--- NOTE | 2016-10-06 01:04 | NUR ---
MS RN NOTE: PATIENT RESTING IN BED, NO ACUTE DISTRESS NOTED. BREATHING EVEN AND UNLABORED, NO SOB NOTED. ISOLATION PRECAUTIONS OBSERVED. BED LOCKED AND IN LOWEST POSITION, CALL LIGHT IN REACH. WILL CONTINUE TO MONITOR.
[2016-10-06] MEDS: IPRATROPIUM NEB FS 0.5 MG/2.5 ML AMPUL.NEB IH SCH ×4 (01:16→20:00)
[2016-10-06] MEDS: ALBUTEROL FS 2.5 MG/0.5 ML VIAL.NEB NEB SCH ×4 (01:16→20:00)
[2016-10-06 04:00] VITALS: BP 110/71
[2016-10-06] MEDS: CEFEPIME 1 GM in IV D5W 50 ML IV SCH ×3 (05:00→21:47)
--- NOTE | 2016-10-06 05:00 | NUR ---
MS RN NOTE: PATIENT 0500 MEDICATIONS GIVEN ORDERED AND SIGNED ON PAPER MAR DUE TO COMPUTER DOWN. WILL CONTINUE TO MONITOR.
--- NOTE | 2016-10-06 06:00 | NUR ---
MS RN NOTE: PATIENT RESTING IN BED, NO ACUTE DISTRESS NOTED. BREATHING EVEN AND UNLABORED, NO SOB NOTED. TRACH IN PLACE WITH COOL AEROSOL. G-TUBE IN PLACE, INFUSING FIBERSOURCE AT 85ML/HL. HOB ELEVATED. IV TO RIGHT UPPER ARM IN PLACE, INFUSING D5W AT 50 ML/HR. ISOLATION PRECAUTIONS OBSERVED. BED LOCKED AND IN LOWEST POSITION, CALL LIGHT IN REACH. WILL ENDORSE TO DAY NURSE TO CONTINUE WITH PLAN OF CARE.
[2016-10-06 07:08] LABS: BASOPHILS % (AUTO) 0.2 % (0.0-2.0); EOSINOPHILS # (AUTO) 0.5 /CMM (0.0-0.7); HEMATOCRIT 29 % (39-51); HEMOGLOBIN 9.3 g/dL (13.5-17.5); LYMPHOCYTES # (AUTO) 1.3 /CMM (0.8-4.8); MEAN CORPUSCULAR HEMOGLOBIN 25 PG (26.0-33.0); MEAN CORPUSCULAR HGB CONC 32 g/dl (31.0-36.0); MEAN CORPUSCULAR VOLUME 79 fL (80-96); MONOCYTES # (AUTO) 0.6 /CMM (0.1-1.30); MONOCYTES % (AUTO) 6.1 % (2.0-12.0); NEUTROPHILS # (AUTO) 7.3 /CMM (1.8-8.9); NEUTROPHILS % (AUTO) 75.7 % (43.0-81.0); PLATELET COUNT (AUTO) 343 /CMM (150-450); RDW COEFFICIENT OF VARIATION 18.6 (11.5-15.0); RED BLOOD CELL COUNT(AUTO) 3.68 MIL/uL (4.5-6.0); WHITE BLOOD COUNT (AUTO) 9.7 K/uL (4.3-11.0)
[2016-10-06 07:35] LABS: CALCIUM, SERUM 8.9 mg/dL (8.5-10.1); CREATININE 0.8 mg/dL (0.6-1.3); MAGNESIUM 2.2 mg/dL (1.8-2.4); PHOSPHORUS 3.3 mg/dL (2.5-4.9); POTASSIUM 3.6 mmol/L (3.5-5.1)
[2016-10-06 08:00] VITALS: BP 122/69
[2016-10-06] MEDS: MULTIVITAMINS,THERAPEUTIC 1 UDTAB TABLET GT SCH (08:40)
[2016-10-06] MEDS: LACTOBACILLUS RHAMNOSUS GG 1 EACH CAP.SPRINK GT SCH ×2 (08:40→18:25)
[2016-10-06] MEDS: FERROUS SULFATE (325 MG) 325 MG/TAB TABLET GT SCH ×3 (08:40→18:24)
[2016-10-06] MEDS: CHLORHEXIDINE GLUCONATE 15 ML UDC MM SCH ×2 (08:40→21:47)
[2016-10-06] MEDS: AMANTADINE SUSP 50 MG/5 ML UDC GT SCH ×2 (08:40→21:47)
[2016-10-06] MEDS: ASCORBIC ACID SYRUP 500 MG/5 ML UDC GT SCH (08:40)
[2016-10-06] MEDS: POLYETHYLENE GLYCOL 3350 17 GM POWD.PACK GT SCH (08:41)
[2016-10-06] MEDS: HYDROCODONE/APAP 5/325MG 1 EACH TABLET GT SCH ×2 (08:41→18:25)
[2016-10-06] MEDS: LISINOPRIL (5MG) 5 MG TABLET GT SCH (08:44)
[2016-10-06] MEDS: AMLODIPINE BESYLATE 10 MG TABLET GT SCH (08:44)
[2016-10-06] MEDS: METOPROLOL TARTRATE 25 MG TABLET GT SCH (08:45)
[2016-10-06] MEDS: ENOXAPARIN SODIUM 30 MG/0.3 ML DISP.SYRIN SQ SCH ×2 (08:51→21:51)
[2016-10-06] MEDS: ERYTHROMYCIN BASE OPHTH 3.5 GM TUBE EACHEYE SCH ×4 (08:51→21:53)
[2016-10-06] MEDS: DAKINS QUARTER STRENGTH (0.125%) 480 ML BOTTLE TOP SCH (08:51)
[2016-10-06] MEDS: HYDROGEL DRESSING 90 GM TUBE TP SCH (08:51)
[2016-10-06] MEDS: PROSOURCE / PROSTAT (PYXIS) 30 ML UDC GT SCH ×4 (08:52→21:47)
--- NOTE | 2016-10-06 09:37 | NUR ---
RN INITIAL NOTE, PT RECEIVED IN BED, NONVERBAL OBTUNDED. NO S/S OF PAIN OR DISCOMFORT. PT HAS TRACH, [place] #6, FI02-28%, 5L O2. SATING WELL. NO S/S OF RESPIRATORY DISTRESS OR SOB. MARTINEZ CATHETER DRAINING TO GRAVITY. GTUBE FLUSHED AND PATENT, RUNNING FIBERSOURCE AT 85ML/HR. RIGHT UPPER ARM MIDLINE FLUSHED, PATENT. SKIN WARM AND DRY TO TOUCH. SAFETY PRECAUTIONS IN PLACE, BED IN LOCKED, LOW POSITION. ISOLATION PRECAUTIONS OBSERVED AT ALL TIMES. CALL LIGHT WITHIN EASY REACH. WILL CONTINUE TO MONITOR.
[2016-10-06] MEDS: IV D5W 1,000 ML IV PRN (12:27)
[2016-10-06] MEDS ORDERED: LIDOCAINE 1% INJ 50 ML MDV IJ ONE (15:30)
[2016-10-06] MEDS ORDERED: SILVER NITRATE APPLICATOR 1 EA BOX TP STA (15:41)
[2016-10-06 18:00] VITALS: BP 101/58
[2016-10-06] MEDS: FIBERSOURCE HN 1,000 ML BOTTLE GT PRN (18:25)
--- NOTE | 2016-10-06 19:06 | NUR ---
RN CLOSING NOTE ALL MD ORDERS CARRIED OUT, PATIENT KEPT CLEAN AND DRY. SAFETY PRECAUTIONS IN PLACE AT ALL TIMES. REPORT WILL BE GIVEN TO ONCOMING PM RN FOR ROMI
--- NOTE | 2016-10-06 19:30 | NUR ---
Pt in bed. Responds to tactile and pain stimuli. Does not communicate. Trach T-piece to cool aerosol 28%. No distress noted. No obvious signs of pain. GT patent, flushing well, 10mL residual. F/C to gravity, dark yellow UO. D5W @ 50mL/hr. Appears stable and comfortable. Helmet in place. All wound dressings intact. Fall precautions and isolation maintained.
[2016-10-06 20:00] VITALS: BP 113/71
[2016-10-06] MEDS: LINEZOLID 600 MG TABLET GT SCH (21:47)
[2016-10-06] MEDS: TERAZOSIN HCL 1 MG CAPSULE GT SCH (21:48)
[2016-10-07] VITALS: BP_SYST 110; BP_SYST 90; BP_DIAS 36; BP_DIAS 69
[2016-10-07] MEDS: LANOLIN/MIN OIL/PETROLAT,WHT 3.5 GM TUBE EACHEYE SCH ×6 (00:11→20:59)
[2016-10-07] MEDS: IPRATROPIUM NEB FS 0.5 MG/2.5 ML AMPUL.NEB IH SCH ×4 (01:27→19:51)
[2016-10-07] MEDS: ALBUTEROL FS 2.5 MG/0.5 ML VIAL.NEB NEB SCH ×4 (01:27→19:51)
[2016-10-07 04:00] VITALS: BP 105/63
[2016-10-07] MEDS: CEFEPIME 1 GM in IV D5W 50 ML IV SCH ×3 (04:25→21:04)
--- NOTE | 2016-10-07 05:20 | NUR ---
Pt remains stable throughout shift. Wound care provided. No acute changes noted. Assisted with repositioning and hygiene. Tolerating GT feeding well. All needs anticipated and met by staff. Call light in reach.
[2016-10-07] MEDS: ENOXAPARIN SODIUM 30 MG/0.3 ML DISP.SYRIN SQ SCH ×2 (08:15→21:03)
[2016-10-07] MEDS: CHLORHEXIDINE GLUCONATE 15 ML UDC MM SCH ×2 (08:15→21:01)
[2016-10-07] MEDS: MULTIVITAMINS,THERAPEUTIC 1 UDTAB TABLET GT SCH (08:16)
[2016-10-07] MEDS: LINEZOLID 600 MG TABLET GT SCH ×2 (08:16→21:04)
[2016-10-07] MEDS: POLYETHYLENE GLYCOL 3350 17 GM POWD.PACK GT SCH (08:16)
[2016-10-07] MEDS: ASCORBIC ACID SYRUP 500 MG/5 ML UDC GT SCH (08:16)
[2016-10-07] MEDS: HYDROCODONE/APAP 5/325MG 1 EACH TABLET GT SCH (08:16)
[2016-10-07] MEDS: AMLODIPINE BESYLATE 10 MG TABLET GT SCH (08:17)
[2016-10-07] MEDS: LISINOPRIL (5MG) 5 MG TABLET GT SCH (08:17)
[2016-10-07] MEDS: METOPROLOL TARTRATE 25 MG TABLET GT SCH (08:17)
[2016-10-07] MEDS: LACTOBACILLUS RHAMNOSUS GG 1 EACH CAP.SPRINK GT SCH ×2 (08:18→17:05)
[2016-10-07] MEDS: FERROUS SULFATE (325 MG) 325 MG/TAB TABLET GT SCH ×3 (08:18→17:05)
[2016-10-07 08:19] VITALS: BP 123/75
[2016-10-07] MEDS: HYDROGEL DRESSING 90 GM TUBE TP SCH (09:00)
[2016-10-07] MEDS: ERYTHROMYCIN BASE OPHTH 3.5 GM TUBE EACHEYE SCH ×4 (09:00→21:00)
[2016-10-07] MEDS: PROSOURCE / PROSTAT (PYXIS) 30 ML UDC GT SCH ×4 (09:00→21:01)
[2016-10-07] MEDS: DAKINS QUARTER STRENGTH (0.125%) 480 ML BOTTLE TOP SCH (09:00)
[2016-10-07] MEDS: AMANTADINE SUSP 50 MG/5 ML UDC GT SCH ×2 (10:18→21:00)
[2016-10-07] MEDS ORDERED: IV D5/ 0.9% NACL 1,000 ML IV ONE (14:00)
[2016-10-07] MEDS: FIBERSOURCE HN 1,000 ML BOTTLE GT PRN (14:58)
--- NOTE | 2016-10-07 19:00 | NUR ---
MS RN INITIAL NOTE PT RECEIVED IN BED, OBTUNDED. RIGHT UPPER ARM MIDLINE FLUSHED, PATENT. TRACH, [place] #6, FI02-28%, 5L O2. NO S/S OF RESPIRATORY DISTRESS OR SOB. G TUBE, RUNNING FIBERSOURCE AT 85ML/HR. SAFE ENVIRONMENT PROVIDED FREE OF CLUTTERS. BED IN LOCKED, LOW POSITION. ISOLATION PRECAUTIONS OBSERVED AT ALL TIMES. CALL LIGHT WITHIN EASY REACH. WILL CONTINUE TO MONITOR.
[2016-10-07 20:00] VITALS: BP 106/63
[2016-10-07] MEDS: TERAZOSIN HCL 1 MG CAPSULE GT SCH (21:02)
[2016-10-08] MEDS: LANOLIN/MIN OIL/PETROLAT,WHT 3.5 GM TUBE EACHEYE SCH ×6 (00:17→20:37)
[2016-10-08] MEDS: IPRATROPIUM NEB FS 0.5 MG/2.5 ML AMPUL.NEB IH SCH ×4 (01:47→20:35)
[2016-10-08] MEDS: ALBUTEROL FS 2.5 MG/0.5 ML VIAL.NEB NEB SCH ×4 (01:47→20:35)
[2016-10-08 04:00] VITALS: BP 99/61
[2016-10-08] MEDS: CEFEPIME 1 GM in IV D5W 50 ML IV SCH ×3 (04:31→20:34)
[2016-10-08 06:35] LABS: BASOPHILS % (AUTO) 0.1 % (0.0-2.0); EOSINOPHILS # (AUTO) 0.6 /CMM (0.0-0.7); EOSINOPHILS % (AUTO) 5.6 % (0.0-6.0); HEMATOCRIT 30 % (39-51); HEMOGLOBIN 9.6 g/dL (13.5-17.5); LYMPHOCYTES # (AUTO) 1.3 /CMM (0.8-4.8); LYMPHOCYTES % (AUTO) 12.1 % (20.0-44.0); MEAN CORPUSCULAR HEMOGLOBIN 26 PG (26.0-33.0); MEAN CORPUSCULAR HGB CONC 33 g/dl (31.0-36.0); MEAN CORPUSCULAR VOLUME 78 fL (80-96); MONOCYTES # (AUTO) 0.5 /CMM (0.1-1.30); MONOCYTES % (AUTO) 4.3 % (2.0-12.0); NEUTROPHILS # (AUTO) 8.6 /CMM (1.8-8.9); NEUTROPHILS % (AUTO) 77.9 % (43.0-81.0); PLATELET COUNT (AUTO) 317 /CMM (150-450); RDW COEFFICIENT OF VARIATION 18.9 (11.5-15.0); RED BLOOD CELL COUNT(AUTO) 3.77 MIL/uL (4.5-6.0); WHITE BLOOD COUNT (AUTO) 11.1 K/uL (4.3-11.0)
--- NOTE | 2016-10-08 06:53 | NUR ---
MS RN CLOSING NOTES PATIENT COMFORTABLY IN BED ASLEEP AND EASILY AWAKEN, NO S/S OF RESPIRATORY DISTRESS OR SOB. TRACH IN PLACE WITH COOL AEROSOL. SP02 99%. IV TO RIGHT UPPER ARM IN PLACE INTACT, INFUSING D5NS AT 50 ML/HR. G-TUBE IN PLACE WITH 5ML OF RESIDUAL, GT TUBE INTACT INFUSING FIBERSOURCE AT 85ML/HL. ISOLATION PRECAUTIONS OBSERVED. BED LOCKED AND IN LOWEST POSITION, CALL LIGHT IN REACH. WILL ENDORSE TO THE NEXT SHIFT CONTINUITY OF CARE. KEPT CLEAN DRY AND COMFORTABLE, REPOSITIONED Q2H FOR COMFORT.
--- NOTE | 2016-10-08 07:00 | NUR ---
RN NOTE PT RECEIVED ON BED ,OBTUNDED. TRACH CARE DONE , RESPIRATION EVEN AND UNLABORED, NO SOB NOTED PORTEX #6, FI02-28%, 5L O2. R UPPER ARM IV SITE CDI, FIBERSOURCE RUNNING AT 85ML/HR VIA G TUBE SITE , SR UP x3, CALL LIGHT WITHIN EASY REACH BED IN LOCKED, LOW POSITION. ISOLATION PRECAUTIONS OBSERVED AT ALL TIMES. WILL CONTINUE TO MONITOR PT CLOSELY AND NOTIFY MD FOR ANY SIGNIFICANT CHANGES.
[2016-10-08 07:13] LABS: CREATININE 0.7 mg/dL (0.6-1.3); MAGNESIUM 2.1 mg/dL (1.8-2.4); PHOSPHORUS 3.2 mg/dL (2.5-4.9)
[2016-10-08 08:00] VITALS: BP 106/64
[2016-10-08] MEDS: ENOXAPARIN SODIUM 30 MG/0.3 ML DISP.SYRIN SQ SCH ×2 (08:19→20:59)
[2016-10-08] MEDS: POLYETHYLENE GLYCOL 3350 17 GM POWD.PACK GT SCH (08:19)
[2016-10-08] MEDS: CHLORHEXIDINE GLUCONATE 15 ML UDC MM SCH ×2 (08:19→20:34)
[2016-10-08] MEDS: ASCORBIC ACID SYRUP 500 MG/5 ML UDC GT SCH (08:19)
[2016-10-08] MEDS: LACTOBACILLUS RHAMNOSUS GG 1 EACH CAP.SPRINK GT SCH ×2 (08:20→16:12)
[2016-10-08] MEDS: LISINOPRIL (5MG) 5 MG TABLET GT SCH (08:20)
[2016-10-08] MEDS: AMLODIPINE BESYLATE 10 MG TABLET GT SCH (08:20)
[2016-10-08] MEDS: FERROUS SULFATE (325 MG) 325 MG/TAB TABLET GT SCH ×3 (08:20→16:12)
[2016-10-08] MEDS: MULTIVITAMINS,THERAPEUTIC 1 UDTAB TABLET GT SCH (08:20)
[2016-10-08] MEDS: LINEZOLID 600 MG TABLET GT SCH ×2 (08:21→20:35)
[2016-10-08] MEDS: METOPROLOL TARTRATE 25 MG TABLET GT SCH (08:23)
[2016-10-08] MEDS: PROSOURCE / PROSTAT (PYXIS) 30 ML UDC GT SCH ×4 (08:27→20:59)
[2016-10-08] MEDS: AMANTADINE SUSP 50 MG/5 ML UDC GT SCH ×2 (08:27→20:35)
[2016-10-08] MEDS: ERYTHROMYCIN BASE OPHTH 3.5 GM TUBE EACHEYE SCH ×4 (08:29→20:37)
[2016-10-08] MEDS: DAKINS QUARTER STRENGTH (0.125%) 480 ML BOTTLE TOP SCH (08:29)
[2016-10-08] MEDS: HYDROGEL DRESSING 90 GM TUBE TP SCH (09:43)
[2016-10-08] MEDS: FIBERSOURCE HN 1,000 ML BOTTLE GT PRN (10:01)
--- NOTE | 2016-10-08 12:00 | NUR ---
RN NOTES PT STABLE , TOLERATING TF WELL, NO RESIDUAL NOTED, CONTINUE TO MONITOR.
[2016-10-08 16:00] VITALS: BP 92/49
--- NOTE | 2016-10-08 18:17 | NUR ---
RN NOTES PT REMAINS THE SAME, TRACH CARE DONE, TOLERATING TF WELL, MARITNEZ DRAINING TO GRAVITY . MEIDCATED PER MD ORDER , NO SIGNIFICANT CHANGES NOTED ON THIS SHIFT.
--- NOTE | 2016-10-08 19:30 | NUR ---
RN NOTES RECEIVED PATIENT IN BED WITH RIGHT EYE OPEN; OBTUNDED. NO ACUTE DISTRESS NOTED. NO SIGNS OF PAIN NOTED. TRACH INTACT; WITH COOL AEROSOL; SUCTIONED. IV SITE PATENT, INTACT; FLUSHED. GT SITE PATENT, INTACT; IN PLACE VIA AUSCULTATION; PATIENT TOLERATING GT FEEDING; NO RESIDUAL NOTED. MARTINEZ CATH PATENT, INTACT; DRAINING CLEAR YELLOW URINE. ON LOW BED WITH BILATERAL UPPER SIDE RAILS UP, HOB RAISED; BED ALARM ON. CONTACT ISOLATION FOR VRE IN URINE MAINTAINED. WILL CONTINUE TO MONITOR.
[2016-10-08 20:00] VITALS: BP 102/62
[2016-10-08] MEDS ORDERED: IV NS 0.9% 250 ML IV ONE (20:53)
[2016-10-08] MEDS: TERAZOSIN HCL 1 MG CAPSULE GT SCH (21:32)
[2016-10-09] MEDS: ALBUTEROL FS 2.5 MG/0.5 ML VIAL.NEB NEB SCH ×3 (01:13→13:23)
[2016-10-09] MEDS: IPRATROPIUM NEB FS 0.5 MG/2.5 ML AMPUL.NEB IH SCH ×3 (01:14→13:23)
[2016-10-09] MEDS: LANOLIN/MIN OIL/PETROLAT,WHT 3.5 GM TUBE EACHEYE SCH ×4 (01:41→13:46)
[2016-10-09] MEDS: FIBERSOURCE HN 1,000 ML BOTTLE GT PRN (01:43)
[2016-10-09 04:00] VITALS: BP 104/62
[2016-10-09] MEDS: CEFEPIME 1 GM in IV D5W 50 ML IV SCH ×2 (04:56→13:00)
--- NOTE | 2016-10-09 06:25 | NUR ---
RN NOTES PATIENT IN BED WITH RIGHT EYE CLOSED, AROUSABLE. RESPIRATIONS EVEN. NO SIGNS OF PAIN NOTED. DUE MEDS GIVEN WITH NO ASE NOTED. BED BATH GIVEN. WOUND DRESSINGS REPLACED. SAFETY PRECAUTIONS AND COMFORT MEASURES IN PLACE. WILL GIVE REPORT TO DAY SHIFT FOR CONTINUITY OF CARE.
[2016-10-09 06:36] LABS: BASOPHILS % (AUTO) 0.3 % (0.0-2.0); EOSINOPHILS # (AUTO) 0.5 /CMM (0.0-0.7); EOSINOPHILS % (AUTO) 5.2 % (0.0-6.0); HEMATOCRIT 28 % (39-51); HEMOGLOBIN 8.9 g/dL (13.5-17.5); LYMPHOCYTES # (AUTO) 1.3 /CMM (0.8-4.8); LYMPHOCYTES % (AUTO) 12.2 % (20.0-44.0); MEAN CORPUSCULAR HEMOGLOBIN 25 PG (26.0-33.0); MEAN CORPUSCULAR HGB CONC 32 g/dl (31.0-36.0); MEAN CORPUSCULAR VOLUME 79 fL (80-96); MONOCYTES # (AUTO) 0.8 /CMM (0.1-1.30); MONOCYTES % (AUTO) 7.7 % (2.0-12.0); NEUTROPHILS # (AUTO) 7.9 /CMM (1.8-8.9); NEUTROPHILS % (AUTO) 74.6 % (43.0-81.0); PLATELET COUNT (AUTO) 287 /CMM (150-450); RED BLOOD CELL COUNT(AUTO) 3.57 MIL/uL (4.5-6.0); WHITE BLOOD COUNT (AUTO) 10.6 K/uL (4.3-11.0)
[2016-10-09 07:00] LABS: CALCIUM, SERUM 9.2 mg/dL (8.5-10.1); CREATININE 0.7 mg/dL (0.6-1.3); MAGNESIUM 2.1 mg/dL (1.8-2.4); PHOSPHORUS 3.5 mg/dL (2.5-4.9); POTASSIUM 4.3 mmol/L (3.5-5.1)
[2016-10-09 08:00] VITALS: BP 102/61
--- NOTE | 2016-10-09 08:00 | NUR ---
pts condiation remains unchanged..tf continues per order..hob remains up at approx 20 degrees for aspiration precautions.....noresidual noted....pt pending d/c this day
[2016-10-09] MEDS: METOPROLOL TARTRATE 25 MG TABLET GT SCH (08:42)
[2016-10-09] MEDS: ASCORBIC ACID SYRUP 500 MG/5 ML UDC GT SCH (08:43)
[2016-10-09] MEDS: LACTOBACILLUS RHAMNOSUS GG 1 EACH CAP.SPRINK GT SCH (08:43)
[2016-10-09] MEDS: MULTIVITAMINS,THERAPEUTIC 1 UDTAB TABLET GT SCH (08:43)
[2016-10-09] MEDS: POLYETHYLENE GLYCOL 3350 17 GM POWD.PACK GT SCH (08:44)
[2016-10-09] MEDS: LINEZOLID 600 MG TABLET GT SCH (08:44)
[2016-10-09] MEDS: LISINOPRIL (5MG) 5 MG TABLET GT SCH (08:45)
[2016-10-09] MEDS: AMLODIPINE BESYLATE 10 MG TABLET GT SCH (08:47)
[2016-10-09] MEDS: CHLORHEXIDINE GLUCONATE 15 ML UDC MM SCH (08:48)
[2016-10-09] MEDS: ENOXAPARIN SODIUM 30 MG/0.3 ML DISP.SYRIN SQ SCH (08:49)
[2016-10-09] MEDS: HYDROGEL DRESSING 90 GM TUBE TP SCH (09:00)
[2016-10-09] MEDS: FERROUS SULFATE (325 MG) 325 MG/TAB TABLET GT SCH ×2 (09:00→13:00)
[2016-10-09] MEDS: PROSOURCE / PROSTAT (PYXIS) 30 ML UDC GT SCH ×2 (09:00→13:00)
[2016-10-09] MEDS: DAKINS QUARTER STRENGTH (0.125%) 480 ML BOTTLE TOP SCH (09:00)
[2016-10-09] MEDS: ERYTHROMYCIN BASE OPHTH 3.5 GM TUBE EACHEYE SCH ×2 (09:00→13:46)
[2016-10-09] MEDS ORDERED: LINE600T GT (11:34)
[2016-10-09] MEDS: AMANTADINE SUSP 50 MG/5 ML UDC GT SCH (11:38)
[2016-10-09 12:00] VITALS: BP 101/61
--- NOTE | 2016-10-09 13:00 | NUR ---
meds not givenas pt pending d/c........transportation scheduled...remains obtunded..
--- NOTE | 2016-10-09 15:43 | NUR ---
pt unable to sign for consent..obtunded.waiting for transportation for discharge to snf Addendum: 10/09/16 at 1544 by BEATRIZ PARHAM RN Amended: Links added.
--- NOTE | 2016-10-09 15:44 | NUR ---
d/augie vicente..unable to sign..pt obtunded Addendum: 10/09/16 at 1545 by BEATRIZ PARHAM RN Amended: Links added.
== END 2016-10-09 16:43 | DRG 254 ==
LOC: ER 11:38 → MEDSG1 12:00 → ER 13:45 → MEDSG1 14:40 → TELE1 14:56 → MEDSG1 10-05 11:10
PROVIDERS: ADMIT Family Medicine; ATTEND Family Medicine
PROC: 0DH63UZ Insertion of Feeding Device into Stomach, Percutaneous Approach (ICD-10-PCS; principal; 2016-10-05 07:24)
DX: Z43.1 Encounter for attention to gastrostomy (principal); G93.40 Encephalopathy, unspecified; R40.3 Persistent vegetative state; E43 Unspecified severe protein-calorie malnutrition; E87.0 Hyperosmolality and hypernatremia; L89.114 Pressure ulcer of right upper back, stage 4; J96.11 Chronic respiratory failure with hypoxia; L89.150 Pressure ulcer of sacral region, unstageable; R53.2 Functional quadriplegia; Z86.73 Personal history of transient ischemic attack (TIA), and cerebral infarction without residual deficits; R13.10 Dysphagia, unspecified; N39.0 Urinary tract infection, site not specified; D72.829 Elevated white blood cell count, unspecified; D63.8 Anemia in other chronic diseases classified elsewhere; E86.1 Hypovolemia; S05.72XS Avulsion of left eye, sequela; D64.9 Anemia, unspecified; E88.09 Other disorders of plasma-protein metabolism, not elsewhere classified; B96.4 Proteus (mirabilis) (morganii) as the cause of diseases classified elsewhere; B96.89 Other specified bacterial agents as the cause of diseases classified elsewhere; Z16.35 Resistance to multiple antimicrobial drugs; E87.5 Hyperkalemia; M86.9 Osteomyelitis, unspecified; L89.610 Pressure ulcer of right heel, unstageable; L89.810 Pressure ulcer of head, unstageable; L89.892 Pressure ulcer of other site, stage 2; I10 Essential (primary) hypertension; Z93.0 Tracheostomy status; E86.9 Volume depletion, unspecified; R79.89 Other specified abnormal findings of blood chemistry; Z68.20 Body mass index [BMI] 20.0-20.9, adult
CPT/HCPCS: 31720; 36415; 43246; 71010-TC; 80048-TC; 83735-TC; 84100-TC; 85025-TC; 85610-TC; 85730-TC; 87040-TC; 87081-TC; 87086-TC; 87186-TC; 94640-TC; 94762-TC; A4606; A6248; A6253; A6402; A6403; J0690; J0692; J0696; J1650; J2704; J3490; J7030; J7042; J7050; J7060; J7070; Z7610